=== PATIENT | female | born 1985 | race Caucasian/White ===

== ENCOUNTER 2020-07-26 20:31 | Emergency (ER) | payer OTHER ==
[~2020-07-26 20:31] MED LIST: AUGMENTIN 875-1 EACH PO; CIPRO HC OTIC S10 ML EARRT; CLEOCIN HCL300 MG PO; COMBIVENT0.074 GM/I INH; IBUPROFEN600 MG PO
[2020-07-27] MEDS ORDERED: PERCOCET 5/325 T1 EA PO (00:07)
[2020-07-27] MEDS ORDERED: TORADOL 10 MG T10 MG PO (00:07)
[2020-07-27] MEDS ORDERED: [UNRECOGNIZED DRUG - REMARK] (00:10)
== END 2020-07-27 01:10 | disposition home or self-care (01) ==
LOC: ER1 20:31
DX: M54.41 Lumbago with sciatica, right side (principal)
CPT/HCPCS: 72131; 96372; 99283; J1885

== ENCOUNTER → 2021-04-04 | Emergency (ER) | payer OTHER ==
[~2021-04-04] VITALS: Ht 157.5 cm; Wt 104.3 kg
[~2021-04-04] MED LIST changes: +PERCOCET 5/325 T1 EA PO; +TORADOL 10 MG T10 MG PO; +[UNRECOGNIZED DRUG - REMARK]
[2021-04-04 19:53] LABS: HEMOGLOBIN 14.6 gm/dl (12.3-15.3); RED BLOOD COUNT 4.72 M/UL (4.00-5.10); WHITE BLOOD COUNT 4.3 K/UL (4.5-11.0)
[2021-04-04 20:13] LABS: BUN/CREATININE RATIO 12 (0-10)
== END | disposition home or self-care (01) ==
LOC: ER1 19:04
PROVIDERS: Emergency Medicine
DX: U07.1 COVID-19 (principal); Z90.49 Acquired absence of other specified parts of digestive tract; Z23 Encounter for immunization
CPT/HCPCS: 71045; 80053; 85025; 85379; 96374; 96375; 99284; J1200; J2405; J2930; M0243; Q9967

== ENCOUNTER 2021-06-07 17:27 | Emergency (ER) | payer OTHER ==
[2021-06-07] MEDS ORDERED: PREDNISONE 10 M10 MG PO (23:20)
== END 2021-06-07 23:24 | disposition home or self-care (01) ==
LOC: ER1 17:27
DX: J06.9 Acute upper respiratory infection, unspecified (principal); H66.90 Otitis media, unspecified, unspecified ear; Z20.822 Contact with and (suspected) exposure to COVID-19
CPT/HCPCS: 0240U; 71045; 87081; 87880; 99283